=== PATIENT | male | born 1985 ===

== ENCOUNTER 2018-05-31 00:22 | Outpatient (CLI) | payer OTHER, SELFPAY ==
--- NOTE | 2018-05-31 10:15 | DI.NM_ITS ---
SYMPTOMS/DIAGNOSIS: RECURRENT CELLULITIS RT GREAT TOE, NONDISPLACED FRACTURE RT GREAT TOE W/O CLEAR TRIGGER, ? OSTEOMYELITIS 3 PHASE BONE SCAN: 3 phase bone scan was performed with intravenous infusion of 24 millicuries of Technetium 99 labeled Methylene Diphosphonate. The patient reportedly had a recent fracture of the great toe. There is increased uptake in the great toe probably involving the phalanges on both immediate and 3.5 hour delayed imaging. Increased flow also noted in this area. The findings as described are nonspecific and could represent fracture but osteomyelitis is not excluded. No other area of increased uptake is identified in the foot or on whole body imaging. CONCLUSION: Increased uptake in great toe phalanges, nonspecific findings which could represent recent fracture or infectious process.
== END 2018-05-31 00:42 ==
PROVIDERS: Visit Provider Nurse Practitioner Adult Health
DX: L03.031 Cellulitis of right toe (principal)
CPT/HCPCS: 78315